=== PATIENT | male | born 1960 | race Caucasian/White ===

== ENCOUNTER 2019-05-04 20:12 | Emergency (ER) | payer BC ==
[2019-05-04] MEDS ORDERED: LIPITOR20 M2 PO (20:40)
[2019-05-04] MEDS ORDERED: ZESTRIL5 M1 PO (20:40)
[2019-05-04] MEDS ORDERED: LOPRESSOR 225 MG/TAB PO (20:42)
[2019-05-04] MEDS ORDERED: K-TAB20 MEQ PO (20:43)
[2019-05-04] MEDS ORDERED: SOTALOL HCL120 MG PO (20:43)
[2019-05-04] MEDS ORDERED: ALDACTONE25 M1 PO (20:44)
[2019-05-04 21:21] LABS: EOS # 0.3 (0.04-0.40); EOS % 3.7 % (0.0-4.0); HEMATOCRIT 42.6 % (42.0-52.0); HEMOGLOBIN 14.4 g/dL (13.5-18.0); LYMPH# 2.2 (1.50-4.00); MEAN CELL VOLUME 94 fl (78-100); MEAN CORPUSCULAR HEMOGLOBIN 32 pg (27-31); MEAN CORPUSCULAR HGB CONC 34 g/dL (33-37); MEAN PLATELET VOLUME 10.7 fl (7.4-10.4); MONO # 0.6 (0.20-0.80); NEU # 3.9 (1.40-6.50); PLATELET COUNT 137 K/mm3 (130-400); RED BLOOD COUNT 4.54 M/mm3 (4.20-5.60); RED CELL DISTRIBUTION WIDTH 12.5 % (11.5-14.5)
[2019-05-04 21:32] LABS: ALBUMIN 4.1 g/dL (3.5-5.0); POTASSIUM 3.7 mmol/L (3.5-5.1)
[2019-05-04 21:34] LABS: CALCIUM 9.2 mg/dL (8.3-10.5)
[2019-05-04 21:35] LABS: TOTAL PROTEIN 6.2 g/dL (6.4-8.3)
[2019-05-04 21:37] LABS: TOTAL BILIRUBIN 0.5 mg/dL (0.2-1.2)
[2019-05-04 23:52] VITALS: BP 104/72
== END 2019-05-05 00:24 | disposition short-term general hospital (02) ==
LOC: ED 20:12
PROVIDERS: Nurse Practitioner Family
DX: I49.3 Ventricular premature depolarization (principal); F41.9 Anxiety disorder, unspecified; Z95.810 Presence of automatic (implantable) cardiac defibrillator; Z86.79 Personal history of other diseases of the circulatory system; Z88.2 Allergy status to sulfonamides